=== PATIENT | male | born 1995 | race Caucasian/White ===

== ENCOUNTER 2019-05-06 19:12 | Emergency (ER) | payer OTHER, MEDICAID ==
[2019-05-06] MEDS: IBUPROFEN 600 MG TAB PO (21:12)
== END 2019-05-06 22:20 | disposition home or self-care (01) ==
LOC: FTE 22:20
DX: S93.401A Sprain of unspecified ligament of right ankle, initial encounter (principal); J45.909 Unspecified asthma, uncomplicated; X50.1XXA Overexertion from prolonged static or awkward postures, initial encounter; Y92.310 Basketball court as the place of occurrence of the external cause
CPT/HCPCS: 73610; 73610-RT; 99283-25